=== PATIENT | female | born 1955 | race Caucasian/White ===

== ENCOUNTER → 2017-12-21 | Outpatient (CLI) | payer MEDICARE, BC, OTHER ==
[~2017-12-21] MED LIST: ALBU8.5H8 PO; AMAN100T PO; AMOX1TAB25 PO; AMOX500T PO; ATOR20TA PO; BENA40TA3 PO; CARB1TAB44 PO; CYAN1TAB29 PO; CYCL1DRO EACHEYE; MULT-516 PO; OMEP40CA6 PO; ROPI12TA2 PO; VITAMIN D3 PO; [UNRECOGNIZED DRUG - CODE] INJ
[2017-12-21 11:09] LABS: BASOPHILS # (AUTO) 0.04 x10^3/uL (0-0.1); BASOPHILS % (AUTO) 1 % (0-1); EOSINOPHILS # (AUTO) 0.12 x10^3/uL (0-0.4); EOSINOPHILS % (AUTO) 2 % (1-7); LYMPHOCYTES # (AUTO) 1.67 x10^3/uL (1-3.4); LYMPHOCYTES % (AUTO) 24 % (22-44); MD NO; MEAN CORPUSCULAR HEMOGLOBIN 33.3 pg (27.0-34.8); MEAN CORPUSCULAR HGB CONC 33.6 g/dL (32.4-35.8); MEAN CORPUSCULAR VOLUME 99.1 fL (80-100); MEAN PLATELET VOLUME 9.9 fL (7.4-10.4); MICROSCOPIC INDICATED; MONOCYTES # (AUTO) 0.58 x10^3/uL (0.2-0.8); MONOCYTES % (AUTO) 8 % (2-9); NEUTROPHILS # (AUTO) 4.62 x10^3/uL (1.8-6.8); NEUTROPHILS % (AUTO) 66 % (42-75); PLATELET COUNT 244 x10^3/uL (130-400); RED BLOOD COUNT 4.21 x10^6/uL (3.82-5.3); RED CELL DISTRIBUTION WIDTH 13.4 % (9.6-15.2)
[2017-12-21 11:16] LABS: ALBUMIN 3.7 g/dL (3.4-5.0); ANION GAP 8 mmol/L (5-15); CALCIUM 8.7 mg/dL (8.5-10.1); CHLORIDE 109 mmol/L (98-107)
[2017-12-21 11:20] LABS: ALANINE AMINOTRANSFERASE 10 U/L (12-78); ALKALINE PHOSPHATASE 119 U/L (45-117); BILIRUBIN,TOTAL 0.8 mg/dL (0.2-1.0); CREATININE 0.86 mg/dL (0.55-1.02); TOTAL PROTEIN 7.4 g/dL (6.4-8.2)
[2017-12-21 11:27] LABS: INTERNATIONAL NORMALIZED RATIO 1.04 (0.93-1.1); PROTHROMBIN TIME 10.8 Seconds (9.6-11.5)
== END | disposition home or self-care (01) ==
LOC: STAR 10:07
PROVIDERS: ATTEND Urology
DX: Z01.818 Encounter for other preprocedural examination (principal); N20.0 Calculus of kidney; I51.7 Cardiomegaly
CPT/HCPCS: 36415; 80053; 81001; 85025; 85610; 85730; 87077; 87086; 93005

== ENCOUNTER 2017-12-29 11:43 | Day surgery (SDC) | payer MEDICARE, BC, OTHER ==
[~2017-12-29] VITALS: Ht 170.2 cm; Wt 109.1 kg
[2017-12-29 12:07] VITALS: BP 131/93
[2017-12-29] MEDS ORDERED: LACTATED RINGERS 1,000 ML IV SCH (12:11)
[2017-12-29] MEDS ORDERED: FENTANYL PF 100 MCG/2ML ONE ×2 (13:46→14:30)
[2017-12-29] MEDS ORDERED: CEFAZOLIN 1,000 MG ONE (13:47)
[2017-12-29] MEDS ORDERED: DEXAMETHASONE 4 MG/ML, 1ML ONE (13:47)
[2017-12-29] MEDS ORDERED: SUCCINYLCHOLINE 20 MG/ML, 10ML ONE (13:47)
[2017-12-29] MEDS ORDERED: ROCURONIUM 10MG/ML,5ML ONE (13:47)
[2017-12-29] MEDS ORDERED: NEOSTIGMINE 1 MG/ML, 10ML ONE (13:47)
[2017-12-29] MEDS ORDERED: GLYCOPYRROLATE 0.2MG/1ML, 5ML ONE (13:47)
[2017-12-29] MEDS ORDERED: PROPOFOL 10 MG/ML, 20ML ONE (13:47)
[2017-12-29] MEDS ORDERED: ONDANSETRON 2MG/ML, 2ML ONE (13:47)
[2017-12-29] MEDS ORDERED: LIDOCAINE-MPF 2% ,5ML ONE (13:47)
[2017-12-29] MEDS ORDERED: EPHEDRINE 50 MG/ML, 1ML ONE (13:48)
[2017-12-29] MEDS ORDERED: PHENYLEPHRINE 10 MG/ML ONE (13:48)
[2017-12-29] MEDS ORDERED: PROMETHAZINE 25 MG/ML, 1ML IV PRN (14:30)
[2017-12-29] MEDS ORDERED: ONDANSETRON 2MG/ML, 2ML IV PRN (14:30)
[2017-12-29] MEDS ORDERED: ONDANSETRON ODT 8 MG PO PRN (14:30)
[2017-12-29] MEDS ORDERED: FENTANYL PF 100 MCG/2ML IV PRN (14:30)
[2017-12-29] MEDS ORDERED: ACETAMINOPHEN 325 MG TABLET PO PRN (14:30)
[2017-12-29] MEDS ORDERED: OXYcodone 5 MG/5 ML ORAL.SOL UDC PO PRN (14:30)
[2017-12-29] MEDS ORDERED: LABETALOL 5MG/ML, 20ML IV PRN (14:30)
[2017-12-29] MEDS ORDERED: MEPERIDINE/PF 25MG/0.5ML IVPush PRN (14:30)
[2017-12-29] MEDS ORDERED: ALBUTEROL SULFATE 2.5 MG/3 ML ONE (15:43)
[2017-12-29] MEDS ORDERED: ALBUTEROL SULFATE 2.5 MG/3 ML NPPB PRN (16:00)
== END 2017-12-29 18:05 | disposition home or self-care (01) ==
LOC: OUT 11:43
PROVIDERS: ATTEND Urology
DX: N20.0 Calculus of kidney (principal); K62.3 Rectal prolapse; G20 Parkinson's disease; I10 Essential (primary) hypertension; E78.00 Pure hypercholesterolemia, unspecified; Z88.1 Allergy status to other antibiotic agents; Z79.2 Long term (current) use of antibiotics; Z79.899 Other long term (current) drug therapy; Z96.651 Presence of right artificial knee joint; Z96.642 Presence of left artificial hip joint; Z87.440 Personal history of urinary (tract) infections; Z82.49 Family history of ischemic heart disease and other diseases of the circulatory system
CPT/HCPCS: 50590; 52332; 94640; C1758; C1769; C2617; J0330; J0690; J1100; J2370; J2405; J2704; J2710; J3010; J3490; J7120; J7613

== ENCOUNTER → 2018-02-03 | Outpatient (CLI) | payer MEDICARE, BC, OTHER ==
[~2018-02-03] MED LIST changes: +CARBIDOPA LEVADOPA; +carbidopa-levodopa
== END | disposition home or self-care (01) ==
LOC: STAR 13:10
PROVIDERS: ATTEND Urology
DX: Z02.9 Encounter for administrative examinations, unspecified (principal)

== ENCOUNTER 2018-02-09 09:36 | Day surgery (SDC) | payer MEDICARE, BC, OTHER ==
[~2018-02-09] VITALS: Ht 170.2 cm; Wt 109.1 kg
[~2018-02-09 09:36] MED LIST changes: -CARBIDOPA LEVADOPA; -carbidopa-levodopa
[2018-02-09 09:57] VITALS: BP 134/92
[2018-02-09] MEDS ORDERED: LACTATED RINGERS 1,000 ML IV SCH (10:00)
[2018-02-09] MEDS ORDERED: carbidopa-levodopa (10:09)
[2018-02-09] MEDS ORDERED: CARBIDOPA LEVADOPA (10:09)
[2018-02-09] MEDS ORDERED: MIDAZOLAM 1 MG/ML, 2ML ONE (14:04)
[2018-02-09] MEDS ORDERED: FENTANYL PF 100 MCG/2ML ONE (14:04)
[2018-02-09] MEDS ORDERED: ROCURONIUM 10 MG/ML,10ML ONE (14:34)
[2018-02-09] MEDS ORDERED: SUCCINYLCHOLINE 20 MG/ML, 10ML ONE (15:01)
[2018-02-09] MEDS ORDERED: PROPOFOL 10 MG/ML, 20ML ONE (15:01)
[2018-02-09] MEDS ORDERED: CEFAZOLIN 1,000 MG ONE (15:02)
[2018-02-09] MEDS ORDERED: hydrALAzine 20 MG/ML, 1ML IV PRN (15:30)
[2018-02-09] MEDS ORDERED: LABETALOL 5MG/ML, 20ML IV PRN (15:30)
[2018-02-09] MEDS ORDERED: OXYcodone 5 MG/5 ML ORAL.SOL UDC PO PRN (15:30)
[2018-02-09] MEDS ORDERED: MEPERIDINE/PF 25MG/0.5ML IVPush PRN (15:30)
[2018-02-09] MEDS ORDERED: ALBUTEROL SULFATE 2.5 MG/3 ML NPPB PRN (15:30)
[2018-02-09] MEDS ORDERED: MIDAZOLAM 1 MG/ML, 2ML IV PRN (15:30)
[2018-02-09] MEDS ORDERED: FENTANYL PF 100 MCG/2ML IV PRN (15:30)
[2018-02-09] MEDS ORDERED: HYDROmorphone 1 MG/ML, 1ML IV PRN (15:30)
[2018-02-09] MEDS ORDERED: ONDANSETRON 2MG/ML, 2ML IV PRN (15:30)
[2018-02-09] MEDS ORDERED: ALBUTEROL SULFATE 2.5 MG/3 ML ONE (16:06)
== END 2018-02-09 17:40 | disposition home or self-care (01) ==
LOC: OUT 09:36
PROVIDERS: ATTEND Urology
DX: N20.0 Calculus of kidney (principal); K21.9 Gastro-esophageal reflux disease without esophagitis; I10 Essential (primary) hypertension; E78.5 Hyperlipidemia, unspecified; G20 Parkinson's disease
CPT/HCPCS: 50590; 52310; 94640; J0330; J0690; J2250; J2704; J3010; J7120

== ENCOUNTER 2020-09-18 12:16 | Emergency (ER) | payer MEDICARE, BC, OTHER ==
[~2020-09-18] VITALS: Ht 167.6 cm; Wt 105.3 kg
[~2020-09-18 12:16] MED LIST changes: +CARBIDOPA LEVADOPA; -OMEP40CA6 PO; +OMEP40CA8 PO; +[UNRECOGNIZED DRUG - CODE] INJ; -[UNRECOGNIZED DRUG - CODE] INJ; +carbidopa-levodopa
--- NOTE | 2020-09-18 12:25 | NUR ---
EKG DONE IN TRIAGE.
[2020-09-18 12:46] LABS: BASOPHILS % (AUTO) 1 % (0-1); EOSINOPHILS % (AUTO) 1 % (1-7); LYMPHOCYTES % (AUTO) 19 % (22-44); MEAN CORPUSCULAR HEMOGLOBIN 33.6 pg (27.0-34.8); MEAN PLATELET VOLUME 9.3 fL (7.4-10.4); MONOCYTES % (AUTO) 7 % (2-9); NEUTROPHILS % (AUTO) 73 % (42-75); PLATELET COUNT 269 x10^3/uL (130-400); RED BLOOD COUNT 4.33 x10^6/uL (3.82-5.3); RED CELL DISTRIBUTION WIDTH 13.1 % (9.6-15.2)
[2020-09-18 12:48] LABS: MD NO
[2020-09-18 12:57] LABS: ANION GAP 3 mmol/L (5-15); CALCIUM 8.9 mg/dL (8.5-10.1); CHLORIDE 108 mmol/L (98-107)
--- NOTE | 2020-09-18 13:04 | NUR ---
CREEL CLERK: PT TO ROOM FROM LOBBY VIA WHEELCHAIR AT THIS TIME
[2020-09-18 13:09] LABS: ALANINE AMINOTRANSFERASE 8 U/L (12-78); ALBUMIN 3.7 g/dL (3.4-5.0); ALKALINE PHOSPHATASE 135 U/L (45-117); BILIRUBIN,TOTAL 1.3 mg/dL (0.2-1.0); CREATININE 0.79 mg/dL (0.55-1.02); TOTAL PROTEIN 7.5 g/dL (6.4-8.2)
--- NOTE | 2020-09-18 13:20 | NUR ---
REVIEW OF CHART, ASSUME CARE OF PT AT THIS TIME.
--- NOTE | 2020-09-18 13:25 | NUR ---
Task RN: pt here for evauation of high B/P while at PT today. pt had a foot surgery in March and was oing PT to build up her foot strength. pt has no KELLEY, no dizziness. pt does have a hx of Parkinson's. reports that she is compliant with her medications. no facial droop noted. no difficulty breathing speaking or swallowing. SO at bedside
[2020-09-18 13:34] VITALS: BP 158/75
[2020-09-18] MEDS ORDERED: SAFI100T PO (13:34)
[2020-09-18] MEDS ORDERED: OMEP-110 PO (13:34)
[2020-09-18] MEDS ORDERED: ASPI-963 PO (13:34)
--- NOTE | 2020-09-18 13:41 | NUR ---
report to [facility]
--- NOTE | 2020-09-18 13:51 | NUR ---
DR MORA IN TO SEE PT.
== END 2020-09-18 14:39 | disposition home or self-care (01) ==
LOC: ED 14:30
DX: I10 Essential (primary) hypertension (principal); R94.4 Abnormal results of kidney function studies; R94.31 Abnormal electrocardiogram [ECG] [EKG]
CPT/HCPCS: 36415; 71045; 80053; 85025; 93005; 99285